=== PATIENT | male | born 1970 | race Caucasian/White ===

== ENCOUNTER 2021-07-21 13:21 | Emergency (ER) | payer OTHER ==
[2021-07-21 13:47] VITALS: TEMP 97.8; BMI 28.0
[2021-07-21] MEDS ORDERED: ACETAMINOPHEN 325 MG TABLET (FP) PO ONE (14:24)
[2021-07-21] MEDS ORDERED: LIDOCAINE 5% TOPICAL PATCH TP ONE (14:24)
[2021-07-21] MEDS ORDERED: KETOROLAC TROMETHAMINE 30 MG/1 ML VIAL IM ONE (14:28)
[2021-07-21] MEDS ORDERED: ACETAMINOPHEN 325 MG TABLET (FP) ONE (14:33)
[2021-07-21] MEDS ORDERED: KETOROLAC TROMETHAMINE 30 MG/1 ML VIAL ONE (14:34)
[2021-07-21] MEDS ORDERED: LIDOCAINE 5% TOPICAL PATCH ONE (14:34)
[2021-07-21 17:05] VITALS: BP 130/76; PULSE 80
[2021-07-21] MEDS ORDERED: LIDOCAINE PATCH REMOVAL MC ONE (22:00)
== END 2021-07-21 17:05 | disposition home or self-care (01) ==
LOC: JER 13:21
PROC: 3E023GC Introduction of Other Therapeutic Substance into Muscle, Percutaneous Approach (ICD-10-PCS; principal; 2021-07-21)
DX: M54.6 Pain in thoracic spine (principal)
CPT/HCPCS: 71046-TC-FY; 99284-25